=== PATIENT | female | born 1960 | race Caucasian/White ===

== ENCOUNTER 2016-07-22 09:30 | Day surgery (SDC) | payer MEDICARE, MEDICAID ==
[~2016-07-22] VITALS: Ht 160 cm; Wt 68.0 kg
[~2016-07-22 09:30] MED LIST: HYDR-3740 PO; LEVO125T2 PO; Sodium Chloride LOK Flush 10 mL Syringe IV PRN; TRAM50TA2 PO; fentaNYL-PF 50 mCg/mL 2 mL Inj IVPUSH PRN
[2016-07-22 10:06] VITALS: BP 119/63; PULSE 80; RESP 16; O2SAT 100
[2016-07-22] MEDS: 0.9% Sodium Chloride 1,000 ML IV PRN ×2 (10:21→10:55)
[2016-07-22 11:14] VITALS: BP 129/70; PULSE 75; RESP 16; O2SAT 99
--- NOTE | 2016-07-22 11:42 | ENDO ---
[address] [address] ENDOSCOPY PROCEDURE PATIENT: ADRIEL HANNAH : 1960 MR#: [id number] ADMIT: 07/22/2016 JOB ID: [id number] DATE: 07/22/2016 PROCEDURE: Colonoscopy. INDICATIONS: Screening. The patient's ASA classification is 1. Mallampati score is 1. MEDICATIONS: No medications were given for sedation at the patient's request. INSTRUMENT USED: PCF H 180 AL. PREPARATION QUALITY: Was good. PROCEDURE DETAILS: After informed consent was obtained, the patient was brought into the GI suite, where she was placed on oxygen via nasal cannula and monitored with continuous pulse oximeter, telemetry and blood pressure monitoring. A time-out was performed. Then, she was placed in the left lateral decubitus position and medications were administered for sedation. A digital rectal examination was performed, which was unremarkable. The colonoscope was then inserted into the rectum and advanced under direct visualization to the cecum, which was identified by the presence of the ileocecal valve and appendiceal orifice. Once the cecum was reached, the colonoscope was withdrawn back into the rectum and the mucosa and lumen were examined. In the rectum, retroflexion was performed. Following retroflexion, remaining air in the rectum was suctioned, and the procedure was completed. FINDINGS: 1. In the transverse colon, there was a diminutive polyp that was removed with cold biopsy forceps. 2. Retroflexed views in the rectum revealed a diminutive polyp in the distal rectum that was removed with cold biopsy forceps. IMPRESSION: 1. Transverse colon polyp. 2. Rectal polyp. RECOMMENDATIONS: Repeat colonoscopy pending polyp pathology results. COMPLICATIONS: None. ESTIMATED BLOOD LOSS: Less than 5 mL.
--- NOTE | 2016-07-23 15:09 | PATH ---
SURGICAL PATHOLOGY Attending Physician:Eleonora Rascon CASE STATUS: Signed Out PATIENT NAME: ADRIEL HANNAH PID: [id number] : 1960 DATE COLLECTED:07/22/2016 15:55 SPECIMEN: 1: Colon, Biopsy 2: Rectum, Biopsy CLINICAL HISTORY: A: TRANSVERSE POLYP B: RECTAL POLYP FINAL DIAGNOSIS: 1.TRANSVERSE COLON POLYP: TUBULAR ADENOMA. 2.RECTAL POLYP: HYPERPLASTIC POLYP. ICD10 CODE D12.3 K62.1 GROSS DESCRIPTION: The specimen is received in two formalin filled containers labeled with the patient's name. 1). The specimen is sublabeled "transverse polyp" and consists of 3 portions of tissue which aggregate to 0.3 x 0.3 x 0.3 CM. The specimen is entirely submitted in cassette 1A. 2). The specimen is sublabeled "rectal polyp" and consists of 2 portions of tissue which aggregate to 0.3 x 0.3 x 0.3 CM. The specimen is entirely submitted in cassette 2A. 07/22/2016 [facility] MICRO DESCRIPTION: See diagnosis. ICD-9 CODES: CPT CODES: 1: 20174 2: 45500 Electronically Signed Out Halima Danielle MD [facility] [address], [place] [address] Technical component performed at [facility], [address] [place] [address] Ave[address], [place], [address]
== END 2016-07-22 23:59 | disposition home or self-care (01) ==
LOC: END 09:30
PROVIDERS: ATTEND Internal Medicine Gastroenterology
DX: Z12.11 Encounter for screening for malignant neoplasm of colon (principal); D12.3 Benign neoplasm of transverse colon; K62.1 Rectal polyp
CPT/HCPCS: 45380; 88305; J2250; J7030